=== PATIENT | male | born 1950 | race Caucasian/White ===

== ENCOUNTER → 2016-08-16 | Outpatient (CLI) | payer BC ==
[~2016-08-16] MED LIST: ENBREL50 MG/1 ML SUBQ; KETOPROFEN PO; LASIX20 MG PO; OMEPRAZOLE20 M1 PO; SYMBICORT INH; ZITHROMAX1 G/PKT PO
--- NOTE | ~2016-08-16 | US13 ---
[facility] A Service of [facility] RADIOLOGY TEXT RESULTS PATIENT: BENEDICT GRAHAM LOCATION: [facility] : 52 UNIT #: [id number] AGE: [address]: TIRSO RAM MD SEX: M ORDER DR: [id number] [address] [address] [id number] O MR#: [id number] Acc #: [id number] NAME: BENEDICT GRAHAM. : 1950 SEX: M STUDY DATE/TIME: 08/16/2016 9:07 UNIT: [facility] ROOM: STUDY DESCRIPTION: US Aorta Limited Attending Physician: Armin Ram M.D. Referring Physician: Armin Ram M.D. Ordering Physician: Armin Ram M.D. Primary Care Physician: Armni Ram M.D. MEDICAL IMAGING REPORT This report is preliminary unless electronic signature is present. EXAM Abdominal aorta ultrasound DATE OF EXAM: 08/16/16 HISTORY Screening for aneurysm. FINDINGS B mode imaging and color Doppler imaging of the infrarenal artery was performed as well as well as proximal iliac arteries. Widely patent vessels are noted throughout without evidence of stenosis. The aortic velocity was 20 cm/sec. The proximal infrarenal aorta is 2.7 cm, mid aorta 2.1 cm and distal aorta 1.6 cm. The right common iliac artery is 1.3 cm and the left 1.3 cm. IMPRESSION No evidence of infrarenal abdominal aortic aneurysm or right or left common iliac artery aneurysm. Dictated by... Jerad Rodrigues M.D. THIS IS AN ELECTRONICALLY VERIFIED REPORT Jerad Rodrigues M.D. at 08/25/2016 2:56 PM MARGO/devin TD: 08/16/2016 13:12 JOB #: [id number] [facility] A Service of [facility] RADIOLOGY TEXT RESULTS PATIENT: BENEDICT GRAHAM LOCATION: [facility] #: [id number] : 52 UNIT #: [id number] AGE: [address]: TIRSO RAM MD SEX: M ORDER DR: MEDICAL IMAGING REPORT Page 1 of 1
== END | disposition home or self-care (01) ==
LOC: SGUS 09:00
DX: Z13.6 Encounter for screening for cardiovascular disorders (principal)
CPT/HCPCS: 76775

== ENCOUNTER → 2016-11-08 | Day surgery (SDC) | payer MEDICARE, OTHER ==
--- NOTE | ~2016-11-08 | OR ---
Unit #: [id number] #: [id number] Patient: BENEDICT GRAHAM [id number] [address] [address] [id number] O MR#: [id number] NAME: BENEDICT GRAHAM ROOM: Date of Procedure: 11/08/2016 Admission Date: 11/08/2016 Surgeon: Lukas Yoon M.D. : 1950 Attending Physician: Lukas Yoon M.D. Primary Care Physician: Armin Singh M.D. OPERATIVE REPORT PREOPERATIVE DIAGNOSIS Screening colonoscopy. POSTOPERATIVE DIAGNOSIS Screening colonoscopy. PROCEDURE PERFORMED Colonoscopy to terminal ileum. ANESTHESIA Monitored anesthesia care. FINDINGS The patient had scattered damian-diverticular disease, primarily left-sided as well as mild internal hemorrhoids. SPECIMENS None. COMPLICATIONS None apparent. CONDITION The patient tolerated the procedure well. INDICATIONS FOR PROCEDURE The patient is a 66-year-old white male, who presents at this time for screening colonoscopy. DESCRIPTION OF PROCEDURE After obtaining informed consent, the patient was brought to the endoscopy suite and after adequate monitored anesthesia care, had the colonoscope placed through the anus and slowly advanced to the level of the cecum without difficulty with the lumen always in view. The cecum was normal as was the ileocecal valve. We were able to pass through the ileocecal valve into the terminal ileum, which was also normal. On pulling back above the cecum, the cecum was normal as was the ascending colon other than an occasional diverticulum. There was scattered damian-diverticular disease throughout, primarily in the sigmoid colon and descending colon. Other than this, there was no abnormality seen in the ascending colon, hepatic flexure, transverse colon, splenic flexure, descending colon, sigmoid colon, or rectum. On retroflexing in the rectum to the anorectal Unit #: [id number] #: [id number] Patient: BENEDICT GRAHAM junction, the patient was found to have some mild internal hemorrhoids. The scope was removed without difficulty. The patient tolerated the procedure well and went from the endoscopy suite to the recovery area in stable condition. RECOMMENDATIONS Diverticular sheet given. High-fiber diet, lots of liquids, tucks or wipes p.r.n. Follow up as needed. Dictated by... Esme Coello/jeane TD: 11/08/2016 08:14 JOB #: [id number] CC: [facility] OPERATIVE REPORT Page 1 of 1 X Lukas Yoon MD X PROCEDURE OPERATIVE NOTE
== END | disposition home or self-care (01) ==
LOC: COPS 10-11 07:30
DX: Z12.11 Encounter for screening for malignant neoplasm of colon (principal); K57.30 Diverticulosis of large intestine without perforation or abscess without bleeding; K64.8 Other hemorrhoids; K21.9 Gastro-esophageal reflux disease without esophagitis; J44.9 Chronic obstructive pulmonary disease, unspecified; M19.90 Unspecified osteoarthritis, unspecified site; Z79.51 Long term (current) use of inhaled steroids; Z79.899 Other long term (current) drug therapy
CPT/HCPCS: J2250